=== PATIENT | male | born 1955 | race Caucasian/White ===

== ENCOUNTER 2018-09-02 08:40 | Inpatient (IN) ==
[2018-09-02 09:21] LABS: Baso % (Auto) 0.7 % (0.0-2.0); Eos # (Auto) 0.3 th/mm3 (0.0-0.4); Eos % (Auto) 4.7 % (0.0-4.0); Hematocrit 52.5 % (39.0-51.0); Hemoglobin 17.3 gm/dL (13.0-17.0); Lymph # (Auto) 0.9 th/mm3 (1.0-4.8); Mean Corpuscular Hemoglobin 28.6 pg (27.0-34.0); Mean Corpuscular Volume 86.9 fL (80.0-100.0); Mean Platelet Volume 7.8 fL (7.0-11.0); Mono # (Auto) 0.5 th/mm3 (0.0-0.9); Mono % (Auto) 9.1 % (0.0-8.0); Neut # (Auto) 3.8 th/mm3 (1.8-7.7); Neut % (Auto) 68.5 % (16.0-70.0); Platelet Count 204 th/mm3 (150-450); Red Blood Count 6.05 mil/mm3 (4.50-5.90); Red Cell Distribution Width 16.7 % (11.6-17.2); White Blood Count 5.5 th/mm3 (4.0-11.0)
--- NOTE | 2018-09-02 09:25 | XR ---
EXAM DATE: 09/02/2018 9:21 AM EST AGE/SEX: 63 years / Male INDICATIONS: Dyspnea. Patient complains of leg swelling. Patient is also getting over bronchitis. CLINICAL DATA: This is the patient's initial encounter. Patient reports that signs and symptoms have been present for 1 day and indicates a pain score of 0/10. MEDICAL/SURGICAL HISTORY: None. None. COMPARISON: No prior exams available for comparison. FINDINGS: Patchy mild infiltrate in the right infrahilar area. Otherwise, the rest the lungs are grossly clear. There are no pleural effusions or pulmonary edema. There is some mild prominence of the pulmonary va sculature suggestive of some pulmonary venous congestion. The heart size is upper limits of normal. T he bony structures are grossly intact. CONCLUSION: 1. Mild infiltrate in the right infrahilar area. 2. Mild pulmonary venous congestion. Electronically signed by: Mauricio Tavarez MD Board Certified Radiologist 09/02/2018 9:24 AM EST
[2018-09-02 09:40] LABS: Albumin 3.6 g/dL (3.4-5.0); Anion Gap 6 meq/L (5-15); Aspartate Aminotransferase 33 U/L (15-37); Blood Urea Nitrogen 17 mg/dL (7-18); Calcium 8.7 mg/dL (8.5-10.1); Carbon Dioxide 33.2 meq/L (21.0-32.0); Chloride 98 meq/L (98-107); Glomerular Filtration Rate 83 mL/min (>89); Glucose,Random 114 mg/dL (74-106); Potassium 3.8 meq/L (3.5-5.1); Sodium 137 meq/L (136-145)
[2018-09-02 09:41] LABS: Alanine Aminotransferase 53 U/L (12-78)
[2018-09-02 09:42] LABS: ABG PCO2 56 mmHg (38-42); ABG PO2 48 mmHg (61-120)
[2018-09-02 09:45] LABS: Alkaline Phosphatase 93 U/L (45-117); Total Protein 8.2 g/dL (6.4-8.2)
[2018-09-02 09:51] LABS: Creatine Kinase 68 U/L (39-308)
--- NOTE | 2018-09-02 10:15 | US ---
EXAM DATE: 09/02/2018 10:07 AM EST AGE/SEX: 63 years / Male INDICATIONS: Bilateral lower extremity swelling and redness. CLINICAL DATA: This is the patient's initial encounter. Patient reports that signs and symptoms have been present for 2 days and indicates a pain score of 0/10. MEDICAL/SURGICAL HISTORY: Arthritis. Hypertension. . COMPARISON: No prior exams available for comparison. TECHNIQUE: Venous ultrasound of both lower extremities was performed from the inguinal ligament to t he proximal calf. Real-time, color Doppler and spectral tracing, compression and augmentation techni ques were used. FINDINGS: Right Leg: Normal compression of the deep venous system from the inguinal region to the proximal chayo f. No echogenic clot is seen. Normal response of the venous system to augmentation and respiration. Left Leg: Normal compression of the deep venous system from the inguinal region to the proximal calf . No echogenic clot is seen. Normal response of the venous system to augmentation and respiration. Other: None. CONCLUSION: 1. No evidence of DVT. Electronically signed by: Mauricio Tavarez MD Board Certified Radiologist 09/02/2018 10:14 AM EST
--- NOTE | 2018-09-02 11:54 | CT ---
EXAM DATE: 09/02/2018 11:36 AM EST AGE/SEX: 63 years / Male INDICATIONS: Shortness of breath. Diagnosed with bronchitis two weeks ago. Cough. CLINICAL DATA: This is the patient's initial encounter. Patient reports that signs and symptoms have been present for 2 weeks and indicates a pain score of 2/10. MEDICAL/SURGICAL HISTORY: Hypertension. None. RADIATION DOSE: 27.26 CTDI (mGy) COMPARISON: No prior exams available for comparison. TECHNIQUE: Volumetric scanning was performed using a multi-row detector CT scanner during bolus infu solo of 70 ml Omnipaque 350 (iohexol) nonionic water-soluble contrast as a single exam dose. The sam a was post processed with a variety of visualization algorithms including full volume maximum intensi ty projection and sliding thin slab reformation. Using automated exposure control and adjustment of t he mA and/or kV according to patient size, radiation dose was kept as low as reasonably achievable to obtain optimal diagnostic quality images. DICOM format image data is available electronically for r eview and comparison. FINDINGS: Pulmonary Arteries: No filling defects are seen in the pulmonary arteries out to the subsegmental ve ssels. The left and right pulmonary arteries are normal in diameter. Lung: There is a patchy infiltrate in the right middle lobe. There is a single nonspecific 6 mm pulm onary nodule in the left lower lung. Otherwise, the rest the lung manrique are grossly clear. Effusion: None. Mediastinum: No evidence of mediastinal or hilar adenopathy. Other: The axilla is unremarkable. CONCLUSION: 1. No evidence of pulmonary embolus. 2. Patchy infiltrate in the right middle lobe suggestive of pneumonia. 3. Single nonspecific 6 mm pulmonary nodule in the left lower lung. Recommend follow-up noncontrast CT thorax in 6 months to check stability. Electronically signed by: Mauricio Tavarez MD Board Certified Radiologist 09/02/2018 11:52 AM EST
[2018-09-02] MEDS ORDERED: Azithromycin Inj 250 MG in Sodium Chlor 0.9% Inj 250 ML IV.SIG SCH (12:00)
--- NOTE | 2018-09-02 12:01 | ED ---
HPI General Chief Complaint: Respiratory Symptoms Stated Complaint: respiratory/edema Time Seen by Provider: 09/02/18 08:55 History of Present Illness HPI Narrative: This is a 63-year-old male with a history of hypertension, presents today at the request of his primary care doctor for evaluation for worsening shortness of breath. Patient is being treated for bronchitis/ pneumonia however has gotten worse. He was seen by his primary care doctor today who sent him here for further evaluation. Patient also has lower extremity edema and she was concerned that he may have blood clots to the migrated to his lungs causing a pulmonary embolus. Patient denies any fevers, chills. He reports dyspnea on exertion. He reports severe shortness of breath and coughing. He reports productive white phlegm. There are no other complaints at time of examination. Related Data Home Medications Medication Instructions Recorded Confirmed amlodipine 10 mg PO DAILY 09/02/18 09/02/18 bumetanide 0.5 mg PO DAILY 09/02/18 09/02/18 fexofenadine [Rosemary Allergy] 180 mg PO DAILY 09/02/18 09/02/18 lisinopril 20 mg PO DAILY 09/02/18 09/02/18 Allergies Allergy/AdvReac Type Severity Reaction Status Date / Time No Known Allergies Allergy Verified 09/02/18 08:54 Review of Systems ROS: all other systems reviewed are negative Constitutional Denies chills and Denies fever(s) Eyes Reports system reviewed and no additional complaints, except as docu ENT Reports system reviewed and no additional complaints, except as docu Cardiovascular Denies chest pain, Reports edema, Reports dyspnea and Reports orthopnea Respiratory Reports cough and Denies dyspnea Genitourinary Denies dysuria and Denies flank pain Musculoskeletal Denies back pain and Reports myalgias Neurologic Reports system reviewed and no additional complaints, except as docu [facility] Medical History Medical History Arthritis (Acute) Hypertension (Acute) Social History Social History Substance History: No History of Abuse Smoking Status: Never smoker How Often Do You Have a Drink Containing Alcohol: 4 or more times a week Recent Travel in [facility] within the Last 8 Weeks: No Recent Out of Country Travel within the Last 8 Weeks: No Immunization History Tetanus Immunization: Unsure Exam Narrative Exam Narrative: GENERAL: Well-developed well-nourished male in moderate respiratory distress. SKIN: Focused skin assessment warm/dry. HEAD: Atraumatic. Normocephalic. EYES: Pupils equal and round. No scleral icterus. No injection or drainage. ENT: No nasal bleeding or discharge. Mucous membranes pink and moist. NECK: Trachea midline. Supple. Questionable JVD. CARDIOVASCULAR: Regular rate and rhythm. No murmur appreciated. RESPIRATORY: Coarse rhonchi bilaterally. Decreased breath sounds at the bilateral bases. GASTROINTESTINAL: Abdomen soft, non-tender, obese, nondistended. MUSCULOSKELETAL: No obvious deformities. No clubbing. No cyanosis. 3+ edema bilateral lower extremities with chronic erythema. No weeping fluid noted. NEUROLOGICAL: Awake and alert. No obvious cranial nerve deficits. Motor grossly within normal limits. Normal speech. Course Initial Documented Vital Signs Temperature 98.4 F 09/02/18 08:41 Pulse Rate 113 H 09/02/18 08:41 Respiratory Rate 20 09/02/18 08:41 Blood Pressure 163/72 H 09/02/18 08:41 Pulse Oximetry 85 L 09/02/18 08:41 Last Documented Vital Signs Temperature 98.4 F 09/02/18 08:41 Pulse Rate 81 09/02/18 10:59 Respiratory Rate 09/02/18 10:59 Blood Pressure 158/82 H 09/02/18 10:59 Pulse Oximetry 88 L 09/02/18 10:59 Medical Decision Making MDM Narrative Medical decision making narrative: 63-year-old male presents from the doctor's office for evaluation of shortness of breath and cough. Patient was noted to be hypoxic with a sat of 88% on room air. Patient appears to have a infiltrate on chest x-ray. He did also appears to have interstitial edema. Patient has bilateral lower extremity edema which appears chronic. He was being treated with Lasix for the edema. Ultrasound of bilateral lower extremity showed no evidence of DVT. D-dimer was elevated and a CT angiogram of the chest was ordered which shows no evidence of pulmonary embolism but does show pneumonia. There is a call out to the [facility] admitting team. The patient will need to be admitted, diuresed, started on antibiotics. He is been started on Zithromax and Rocephin. Medical Screen Exam Complete: Yes Emergency Medical Condition: Yes Differential Diagnosis Differential Diagnosis: Pneumonia versus pulmonary embolism versus CHF Lab Data Result diagrams: 09/02/18 09:05 09/02/18 09:05 Lab Results 09/02/18 09/02/18 09/02/18 Range/Units 09:05 09:05 09:05 WBC 5.5 (4.0-11.0) th/mm3 RBC 6.05 H (4.50-5.90) mil/mm3 Hgb 17.3 H (13.0-17.0) gm/dL Hct 52.5 H (39.0-51.0) % MCV 86.9 (80.0-100.0) fL MCH 28.6 (27.0-34.0) pg MCHC 33.0 (32.0-36.0) % RDW 16.7 (11.6-17.2) % Plt Count 204 (150-450) th/mm3 MPV 7.8 (7.0-11.0) fL Neut % (Auto) 68.5 (16.0-70.0) % Lymph % (Auto) 17.0 (9.0-44.0) % [place] % (Auto) 9.1 H (0.0-8.0) % Eos % (Auto) 4.7 H (0.0-4.0) % Baso % (Auto) 0.7 (0.0-2.0) % Neut # (Auto) 3.8 (1.8-7.7) th/mm3 Lymph # (Auto) 0.9 L (1.0-4.8) th/mm3 [place] # (Auto) 0.5 (0.0-0.9) th/mm3 Eos # (Auto) 0.3 (0.0-0.4) th/mm3 Baso # (Auto) 0.0 (0.0-0.2) th/mm3 WBC Differential . Differential Comment Auto diff final D-Dimer Quant (PE/DVT) 1.16 H (0.00-0.50) mg/L FEU Puncture Site Patient Temperature O2 Saturation (90-100) % ABG pH (7.380-7.420) ABG pCO2 (38-42) mmHg ABG pO2 (61-120) mmHg ABG HCO3 (22-26) mmol/L ABG O2 Content (12.0-20.0) Vol % ABG Base Excess (-2-2) mmol/L ABG Methemoglobin (0-2) % Sonu Test Hemoglobin (12.0-16.0) G/DL Carboxyhemoglobin (0-4) % O2 Delivery Device Inspired O2 % Critical Value Sodium 137 (136-145) meq/L Potassium 3.8 (3.5-5.1) meq/L Chloride 98 (98-107) meq/L Carbon Dioxide 33.2 H (21.0-32.0) meq/L Anion Gap 6 (5-15) meq/L BUN 17 (7-18) mg/dL Creatinine 0.92 (0.60-1.30) mg/dL Estimated GFR 83 L (>89) mL/min Random Glucose 114 H (74-106) mg/dL Calcium 8.7 (8.5-10.1) mg/dL Total Bilirubin 0.5 (0.2-1.0) mg/dL AST 33 (15-37) U/L ALT 53 (12-78) U/L Alkaline Phosphatase 93 (45-117) U/L Total Creatine Kinase 68 (39-308) U/L Troponin I Less than 0.02 L (0.02-0.05) ng/mL B-Natriuretic Peptide (0-100) pg/mL Total Protein 8.2 (6.4-8.2) g/dL Albumin 3.6 (3.4-5.0) g/dL 09/02/18 09/02/18 Range/Units 09:05 09:35 WBC (4.0-11.0) th/mm3 RBC (4.50-5.90) mil/mm3 Hgb (13.0-17.0) gm/dL Hct (39.0-51.0) % MCV (80.0-100.0) fL MCH (27.0-34.0) pg MCHC (32.0-36.0) % RDW (11.6-17.2) % Plt Count (150-450) th/mm3 MPV (7.0-11.0) fL Neut % (Auto) (16.0-70.0) % Lymph % (Auto) (9.0-44.0) % [place] % (Auto) (0.0-8.0) % Eos % (Auto) (0.0-4.0) % Baso % (Auto) (0.0-2.0) % Neut # (Auto) (1.8-7.7) th/mm3 Lymph # (Auto) (1.0-4.8) th/mm3 [place] # (Auto) (0.0-0.9) th/mm3 Eos # (Auto) (0.0-0.4) th/mm3 Baso # (Auto) (0.0-0.2) th/mm3 WBC Differential Differential Comment D-Dimer Quant (PE/DVT) (0.00-0.50) mg/L FEU Puncture Site Left radial Patient Temperature 98.6 O2 Saturation 80 L* (90-100) % ABG pH 7.45 H (7.380-7.420) ABG pCO2 56 H* (38-42) mmHg ABG pO2 48 L* (61-120) mmHg ABG HCO3 38 H (22-26) mmol/L ABG O2 Content 18.9 (12.0-20.0) Vol % ABG Base Excess 13.0 H (-2-2) mmol/L ABG Methemoglobin 0.6 (0-2) % Sonu Test Y Hemoglobin 16.8 H (12.0-16.0) G/DL Carboxyhemoglobin 1.7 (0-4) % O2 Delivery Device Ra Inspired O2 21 % Critical Value Yes Sodium (136-145) meq/L Potassium (3.5-5.1) meq/L Chloride (98-107) meq/L Carbon Dioxide (21.0-32.0) meq/L Anion Gap (5-15) meq/L BUN (7-18) mg/dL Creatinine (0.60-1.30) mg/dL Estimated GFR (>89) mL/min Random Glucose (74-106) mg/dL Calcium (8.5-10.1) mg/dL Total Bilirubin (0.2-1.0) mg/dL AST (15-37) U/L ALT (12-78) U/L Alkaline Phosphatase (45-117) U/L Total Creatine Kinase (39-308) U/L Troponin I (0.02-0.05) ng/mL B-Natriuretic Peptide 82 (0-100) pg/mL Total Protein (6.4-8.2) g/dL Albumin (3.4-5.0) g/dL Imaging Data Radiologist's impression: Chest X-Ray 09/02/18 08:55 CONCLUSION: 1. Mild infiltrate in the right infrahilar area. 2. Mild pulmonary venous congestion. Venous Doppler Study 09/02/18 08:55 CONCLUSION: 1. No evidence of DVT. Chest CTA 09/02/18 10:57 CONCLUSION: 1. No evidence of pulmonary embolus. 2. Patchy infiltrate in the right middle lobe suggestive of pneumonia. 3. Single nonspecific 6 mm pulmonary nodule in the left lower lung. Recommend follow-up noncontrast CT thorax in 6 months to check stability. Discharge Plan Discharge Disposition Patient Disposition: ED Admit(ED Internal Use Only) Discharge Details Diagnosis: Pneumonia, Pulmonary edema, Bilateral edema of lower extremity, Hypoxia Physicians Team ED Provider: Rebel Siegel Primary Care Provider: Reina Mack Rxs /Orders / Referrals /Forms Prescriptions: No Action fexofenadine [Rosemary Allergy] 60 mg Tablet 180 mg PO DAILY RF: 0 lisinopril 20 mg Tablet 20 mg PO DAILY RF: 0 amlodipine 10 mg Tablet 10 mg PO DAILY RF: 0 bumetanide 0.5 mg Tablet 0.5 mg PO DAILY RF: 0 Status ED Status: With Doctor
[2018-09-02] MEDS ORDERED: Acetaminophen 325 MG Tablet PO PRN (13:16)
[2018-09-02] MEDS ORDERED: Bisacodyl 10 MG Supp RECTAL PRN (13:16)
[2018-09-02] MEDS: Enoxaparin Inj 40 MG/0.4 ML Syringe SQ SCH (14:20)
--- NOTE | 2018-09-02 14:28 | P.HPIM ---
History of Present Illness Service: Hospitalist Primary Care Physician: Reina Mack MD Chief Complaint: Cough History of Present Illness: Mr. Ring is a pleasant 63-year-old male with a history of hypertension who presents to the emergency department due to cough, failed outpatient therapy with oral antibiotics. For the 2 weeks prior to this admission, patient has been experiencing significant upper respiratory symptoms including cough. Her family members, sometimes he has to lean over a chair to breathe. He was evaluated by his primary care physician who prescribed azithromycin initially. With no improvement of symptoms, patient was reevaluated and cephalexin was also given due to suspected lower extremity cellulitis. Patient did have fever 1 day but not persistent fever. Per daughter (an ICU nurse) patient has been having some respiratory problems for over a year. He has had significant bilateral leg swelling and recently redness in both lower extremities with some skin breakage and seepage of fluid. Patient does not have any history of smoking, heart disease. Never been diagnosed with COPD. Due to worsening symptoms as well as failed outpatient therapy, primary care physician advised patient to come to the emergency department today 09/02/2018. Upon arrival, chest x-ray CT pulmonary angiogram as well as bilateral lower extremity Doppler studies were completed. No PE or DVTs were identified. CT scan showed right-sided infiltrates. BNP was 82. No leukocytosis but hemoglobin was 17.3 and hematocrit 52.5. Chemistry panel was largely unremarkable. Patient was given IV azithromycin as well as ceftriaxone 1 g in the emergency department. ABG 7.45/56/48 on room air. Past medical history: Hypertension, seasonal allergies, neuropathy, arthritis Past surgical history: No significant surgical history. Social history: Lifelong non-smoker, drinks 3-6 beers a day. No illicit drugs Family history: No father from heart disease in mother from breast cancer. Inpatient Certification Inpatient Certification: I certify that the inpatient services were ordered in accordance with Medicare regulations governing the order. This includes certification that hospital inpatient services are reasonable and necessary and in the case of services not specified as inpatient-only under 42 CFR 419.22(n), that they are appropriately provided as inpatient services in accordance to with the 2-midnight benchmark under 43 CFR 412.3(e) Estimated Total Length of Stay (Days): 3 Plans for Post Hospital Care: Not yet determined Review of Systems Review of Systems: all other systems reviewed are negative PMFSH Medical History Medical History Arthritis (Acute) Hypertension (Acute) Social History Social History Substance History: No History of Abuse Smoking Status: Never smoker How Often Do You Have a Drink Containing Alcohol: 4 or more times a week Recent Travel in [facility] within the Last 8 Weeks: No Recent Out of Country Travel within the Last 8 Weeks: No Immunization History Tetanus Immunization: Unsure Medications and Allergies Allergies Allergy/AdvReac Type Severity Reaction Status Date / Time No Known Allergies Allergy Verified 09/02/18 08:54 Home Medications Medication Instructions Recorded Confirmed Type amlodipine 5 mg PO DAILY 09/02/18 09/02/18 History benazepril 20 mg PO DAILY 09/02/18 09/02/18 History bumetanide 1 mg PO DAILY 09/02/18 09/02/18 History fexofenadine [Rosemary Allergy] 180 mg PO DAILY 09/02/18 09/02/18 History Active Medications: Active Medications Acetaminophen (Tylenol) 650 mg PO Q4H PRN PRN Reason: headache, fever, pain 1-4 Al Hydroxide/Mg Hydroxide (Milk Of Magnesia Liq) 30 ml PO Q12H PRN PRN Reason: Mild Constipation Albuterol (Duoneb Neb (Prn)) 1 ampul NEB Q4HR NEB PRN PRN Reason: DYSPNEA Bisacodyl (Dulcolax Supp) 10 mg RECTAL DAILY PRN PRN Reason: SEVERE CONSITIPATION Enoxaparin Sodium (Lovenox Inj) 40 mg SQ Q24H [facility] Last Admin: 09/02/18 14:20 Dose: 40 mg Azithromycin 250 mg/ Sodium (Chloride) 250 mls @ 250 mls/hr IV.SIG Q24H [facility] Last Infusion: 09/02/18 14:20 Dose: Infused Ceftriaxone Sodium 1,000 mg/ (Sodium Chloride) 100 mls @ 200 mls/hr IV.SIG ONCE ONE Stop: 09/02/18 15:29 Last Admin: 09/02/18 14:20 Dose: 200 mls/hr Ceftriaxone Sodium 2,000 mg/ (Sodium Chloride) 100 mls @ 200 mls/hr IV.SIG Q24H [facility] Lactulose (Lactulose Liq) 30 ml PO DAILY PRN PRN Reason: SEVERE CONSITIPATION Ondansetron HCl (Zofran Inj) 4 mg IV.PUSH Q6H PRN PRN Reason: NAUSEA OR VOMITING Prednisone (Deltasone) 50 mg PO DAILY [facility] Stop: 09/07/18 14:29 Sennosides (Senokot) 17.2 mg PO Q12H PRN PRN Reason: Moderate Constipation Sodium Chloride (Ns Flush) 2 ml IV.FLUSH BID [facility] Sodium Chloride (Ns Flush) 2 ml IV.FLUSH PRN PRN PRN Reason: FLUSH AFTER USING IV ACCESS Physical Exam Vital signs: Vital Signs 09/02/18 08:41 09/02/18 08:51 09/02/18 08:55 Temperature 98.4 F Pulse Rate 113 H 113 H 110 H Respiratory Rate 20 22 Blood Pressure 163/72 H 140/82 Pulse Oximetry 85 L 85 L 87 L 09/02/18 09:35 09/02/18 09:53 09/02/18 10:59 Temperature Pulse Rate 81 Respiratory Rate 20 Blood Pressure 158/82 H Pulse Oximetry 85 L 88 L 88 L 09/02/18 13:32 09/02/18 13:34 Temperature Pulse Rate 90 Respiratory Rate 20 Blood Pressure 134/74 Pulse Oximetry 91 L 91 L Intake & Output 09/01/18 09/02/18 09/02/18 18:59 06:59 18:59 Intake Total 350 / 350 Output Total 1500 / 1500 Balance -1150 / -1150 Weight 145.15 kg Intake: IV 350 / 350 Azithromycin Inj 250 MG In NS 250 / 250 Inj 250 ML @ 250 mls/hr IV.SIG Q24H [facility] Rx#:[id number] Rocephin Inj 1,000 MG In NS Inj 100 / 100 100 ML @ 200 mls/hr IV.SIG ONCE ONE Rx#:[id number] Output: Urine 1500 / 1500 Other: # Voids 3 Narrative: GENERAL: This is a well-nourished, well-developed patient, in no apparent distress. SKIN: No rashes, ecchymoses or lesions. Warm and dry. HEAD: Atraumatic. Normocephalic. No temporal or scalp tenderness. EYES: Pupils equal round and reactive. No injection or drainage. ENT: Nose without bleeding, purulent drainage or septal hematoma. Airway patent. NECK: Trachea midline. No lymphadenopathy. Supple, nontender, no meningeal signs. CARDIOVASCULAR: Regular rate and rhythm without murmurs, gallops, or rubs. No JVD. RESPIRATORY: Poor air entry, no appreciable wheezing noted. GASTROINTESTINAL: Abdomen soft, non-tender, nondistended. No guarding. MUSCULOSKELETAL: Extremities without clubbing, cyanosis significant. 2+ edema noted in bilateral lower extremities. Erythematous changes noted in the lower part of bilateral lower extremities. NEUROLOGICAL: Awake and alert. Cranial nerves II through XII intact. No focal neurological deficits. Normal speech. Results Labs CBC & Chem 7: 09/02/18 09:05 09/02/18 09:05 Imaging Impressions Chest X-Ray 09/02/18 08:55 CONCLUSION: 1. Mild infiltrate in the right infrahilar area. 2. Mild pulmonary venous congestion. Venous Doppler Study 09/02/18 08:55 CONCLUSION: 1. No evidence of DVT. Chest CTA 09/02/18 10:57 CONCLUSION: 1. No evidence of pulmonary embolus. 2. Patchy infiltrate in the right middle lobe suggestive of pneumonia. 3. Single nonspecific 6 mm pulmonary nodule in the left lower lung. Recommend follow-up noncontrast CT thorax in 6 months to check stability. Caprini VTE Risk Assessment Caprini VTE Risk Assessment: Moderate/High Risk (score >= 2) Caprini Risk Assessment Model: Point Value = 1 Point Value = 2 Point Value = 3 Point Value = 5 Age 41-60 Minor surgery BMI > 25 kg/m2 Swollen legs Varicose veins or History of unexplained or recurrent spontaneous Oral contraceptives or hormone replacement Sepsis (< 1 month) Serious lung disease, including pneumonia (< 1 month) Abnormal pulmonary function Acute myocardial infarction Congestive heart failure (< 1 month) History of inflammatory bowel disease Medical patient at bed rest Age 61-74 Arthroscopic surgery Major open surgery (> 45 min) Laparoscopic surgery (> 45 min) Malignancy Confined to bed (> 72 hours) Immobilizing plaster cast Central venous access Age >= 75 History of VTE Family history of VTE Factor V Leiden Prothrombin [id number] Lupus anticoagulant Anticardiolipin antibodies Elevated serum homocysteine Heparin-induced thrombocytopenia Other congenital or acquired thrombophilia Stroke (< 1 month) Elective arthroplasty Hip, pelvis, or leg fracture Acute spinal cord injury (< 1 month) Prophylaxis Regimen: Total Risk Factor Score Risk Level Prophylaxis Regimen 0-1 Low Early ambulation 2 Moderate Order ONE of the following: *Sequential Compression Device (SCD) *Heparin 5000 units SQ BID 3-4 Higher Order ONE of the following medications: *Heparin 5000 units SQ TID *Enoxaparin/Lovenox 40 mg SQ daily (WT < 150 kg, CrCl > 30 mL/min) *Enoxaparin/Lovenox 30 mg SQ daily (WT < 150 kg, CrCl > 10-29 mL/min) *Enoxaparin/Lovenox 30 mg SQ BID (WT < 150 kg, CrCl > 30 mL/min) AND/OR *Sequential Compression Device (SCD) 5 or more Highest Order ONE of the following medications: *Heparin 5000 units SQ TID (Preferred with Epidurals) *Enoxaparin/Lovenox 40 mg SQ daily (WT < 150 kg, CrCl > 30 mL/min) *Enoxaparin/Lovenox 30 mg SQ daily (WT < 150 kg, CrCl > 10-29 mL/min) *Enoxaparin/Lovenox 30 mg SQ BID (WT < 150 kg, CrCl > 30 mL/min) AND *Sequential Compression Device (SCD) Assessment and Plan Plan Mr. Ring is a pleasant 63-year-old male with a history of hypertension who presents to the emergency department due to worsening cough, failed outpatient therapy with oral antibiotics. On presentation, patient was found to have hypoxic and hypercarbic respiratory failure. Imaging studies showed no DVT or PE but shows right-sided pneumonia. Acute hypoxic respiratory failure Acute hypercarbic respiratory failure ABG showed pH 7.45, PCO2 56 and PO2 48 on room air. O2 saturation 80% on ABG. Maintain supplemental oxygen to obtain O2 saturation around 90% We will start patient on ceftriaxone 2 g every 24 hours IV, Levaquin 750 mg p.o. daily Prednisone 50 mg daily for 5 days Patient would benefit from outpatient formal pulmonary function test. REFUGIO inhibitor induced cough is also possible contributory factor. Will discontinue REFUGIO inhibitor for now. Erythrocytosis Could be due to hemoconcentration. Will repeat CBC in the morning. We will also obtain erythropoietin level. If Hgb remains high and erythropoietin level is also elevated, consider imaging workup for malignancy such as renal cell carcinoma. If erythropoietin level is low and hemoglobin is high, will consider workup for polycythemia vera (JAK2 mutation). Hypertension Continue home medication amlodipine 5 mg p.o. daily. We can up titrate amlodipine. Patient was taking benazepril 20 mg p.o. daily. REFUGIO inhibitor induced cough could be a contributing factor. If needed, we could wait 3-4 weeks and then start ARB such as losartan. Bilateral lower extremity stasis dermatitis Likely lymphedema BNP is 82. Lower ext swelling is unlikely related to heart failure. We will obtain echocardiogram. Keep legs elevated. If erythropoietin level is elevated, malignancy could explain lower extremity lymphedema. Full code. Lovenox for DVT prophylaxis. Discussed with patient, patient's daughter at length.
--- NOTE | 2018-09-02 14:38 | ECG ---
Date Performed: 09/02/2018 Time Performed: 09:07:40 PTAGE: 63 years EKG: SINUS TACHYCARDIA POSSIBLE LEFT ATRIAL ENLARGEMENT INDETERMINATE AXIS RIGHT BUNDLE BRANCH B LOCK LEFT POSTERIOR FASCICULAR BLOCK MODERATE T-WAVE ABNORMALITY, CONSIDER ANTEROLATERAL ISCHEMIA MOD ERATE T-WAVE ABNORMALITY, CONSIDER INFERIOR ISCHEMIA ABNORMAL ECG NO PREVIOUS TRACING DOCTOR: Selene Vásquez Interpretating Date/Time 09/02/2018 14:33:00
[2018-09-02] MEDS: levoFLOXacin 750 MG Tablet PO SCH (15:04)
--- NOTE | 2018-09-02 16:03 | ECHRPT ---
Indication: heart failure CONCLUSIONS Normal left ventricular size. Mild concentric left ventricular hypertrophy. The left ventricular systolic function is normal with an estimated ejection fraction in the range of 55-60%. The estimated pulmonary arterial pressure is 46 mmHg. There is mild tricuspid valve regurgitation. BP: / HR: Rhythm: MEASUREMENTS (Male / Female) Normal Values Technical Quality:Very technically difficult study 2D ECHO LV Diastolic Diameter PLAX 4.3 cm 4.2 - 5.9 / 3.9 - 5.3 cm LV Systolic Diameter PLAX 3.3 cm IVS Diastolic Thickness 1.4 cm 0.6 - 1.0 / 0.6 - 0.9 cm LVPW Diastolic Thickness 1.5 cm 0.6 - 1.0 / 0.6 - 0.9 cm LV Relative Wall Thickness 0.7 RV Internal Dim ED PLAX 3.4 cm LVOT Diameter 2.5 cm Aortic Root Diameter 3.1 cm LA Systolic Diameter LX 2.8 cm 3.0 - 4.0 / 2.7 - 3.8 cm M-MODE Aortic Root Diameter MM 3.7 cm LA Systolic Diameter MM 3.8 cm LA Ao Ratio MM 1.0 AV Cusp Separation MM 2.2 cm DOPPLER AV Peak Velocity 141.0 cm/s AV Peak Gradient 8.0 mmHg LVOT Peak Velocity 122.0 cm/s LVOT Peak Gradient 6.0 mmHg AV Area Cont Eq pk 4.2 cm Mitral E Point Velocity 96.3 cm/s Mitral A Point Velocity 70.6 cm/s Mitral E to A Ratio 1.4 LV E' Lateral Velocity 16.4 cm/s Mitral E to LV E' Lateral Ratio 5.9 LV E' Septal Velocity 8.2 cm/s Mitral E to LV E' Septal Ratio 11.8 TR Peak Velocity 299.0 cm/s TR Peak Gradient 35.8 mmHg Right Atrial Pressure 10.0 mmHg Pulmonary Artery Systolic Pressu 45.8 mmHg Right Ventricular Systolic Press 45.8 mmHg PV Peak Velocity 93.7 cm/s PV Peak Gradient 3.5 mmHg FINDINGS LEFT VENTRICLE Normal left ventricular size. Mild concentric left ventricular hypertrophy. The left ventricular systolic function is normal with an estimated ejection fraction in the range of 55-60%. RIGHT VENTRICLE Normal right ventricular size and systolic function. LEFT ATRIUM The left atrial size is normal. RIGHT ATRIUM The right atrial size is normal. ATRIAL SEPTUM Normal atrial septal thickness without atrial level shunting by limited color doppler interrogation. AORTA The aortic root and proximal ascending aorta are normal in size on limited imaging. MITRAL VALVE Structurally normal mitral valve. No mitral valve stenosis or regurgitation. AORTIC VALVE Trileaflet aortic valve. No aortic valve stenosis or regurgitation. TRICUSPID VALVE The estimated pulmonary arterial pressure is 46 mmHg. There is mild tricuspid valve regurgitation. PULMONARY VALVE No pulmonary valve regurgitation or stenosis. VESSELS The inferior vena cava is normal in size. PERICARDIUM No pericardial effusion. Primo Arce MD, FACC, [facility] [place] (Electronically Signed) Final Date:02 September 2018 16:03
[2018-09-03] MEDS: amLODIPine 5 MG Tablet PO SCH (08:30)
[2018-09-03] MEDS: Loratadine 10 MG Tablet PO SCH (08:30)
[2018-09-03] MEDS: levoFLOXacin 750 MG Tablet PO SCH (08:30)
[2018-09-03] MEDS ORDERED: Lisinopril 20 MG Tablet PO SCH (09:00)
[2018-09-03] MEDS ORDERED: Azithromycin 250 MG Tablet PO SCH (09:00)
--- NOTE | 2018-09-03 10:18 | P.PNIM ---
Subjective Interval history: Follow-up for pneumonia. Patient is currently doing well. On 2 L of oxygen. Denies any chest pain, shortness of breath, fever or chills. Physical Exam Vital signs: Vital Signs 09/02/18 10:59 09/02/18 13:32 09/02/18 13:34 Temperature Pulse Rate 81 90 Respiratory Rate 20 20 Blood Pressure 158/82 H 134/74 Pulse Oximetry 88 L 91 L 91 L 09/02/18 14:56 09/02/18 16:05 09/02/18 20:00 Temperature 98.1 F Pulse Rate 90 84 Respiratory Rate 20 18 Blood Pressure 159/58 H 155/98 H Pulse Oximetry 91 L 88 L 98 09/03/18 00:00 09/03/18 04:00 09/03/18 08:15 Temperature 98.3 F 98.3 F 98.3 F Pulse Rate 80 86 89 Respiratory Rate 20 16 16 Blood Pressure 123/65 119/69 147/80 H Pulse Oximetry 94 L 95 92 L Intake & Output 09/02/18 09/03/18 09/03/18 18:59 06:59 18:59 Intake Total 450 / 450 Output Total 2700 / 2700 Balance -2250 / -2250 Weight 145.15 kg 149.6 kg Intake: IV 450 / 450 Azithromycin Inj 250 MG In NS 250 / 250 Inj 250 ML @ 250 mls/hr IV.SIG Q24H [facility] Rx#:[id number] Rocephin Inj 1,000 MG In NS Inj 200 / 200 100 ML @ 200 mls/hr IV.SIG ONCE ONE Rx#:[id number] Output: Urine 2700 / 2700 Other: # Voids 3 3 Weight On Admission 149.6 kg Narrative: GENERAL: Well-nourished, well-developed patient. SKIN: Warm and dry. HEAD: Normocephalic. EYES: No scleral icterus. No injection or drainage. NECK: Supple, trachea midline. No JVD or lymphadenopathy. CARDIOVASCULAR: Regular rate and rhythm without murmurs, gallops, or rubs. RESPIRATORY: Moderate air entry, no appreciable wheezing noted. No accessory muscle use. GASTROINTESTINAL: Abdomen soft, non-tender, nondistended. MUSCULOSKELETAL: No cyanosis. Chronic stasis dermatitis. 2+ edema. BACK: Nontender without obvious deformity. No CVA tenderness. Results Labs CBC & Chem 7: 09/02/18 09:05 09/02/18 09:05 Imaging Imaging: Impressions Venous Doppler Study 09/02/18 08:55 CONCLUSION: 1. No evidence of DVT. Chest CTA 09/02/18 10:57 CONCLUSION: 1. No evidence of pulmonary embolus. 2. Patchy infiltrate in the right middle lobe suggestive of pneumonia. 3. Single nonspecific 6 mm pulmonary nodule in the left lower lung. Recommend follow-up noncontrast CT thorax in 6 months to check stability. Assessment and Plan Plan Mr. Ring is a pleasant 63-year-old male with a history of hypertension who presents to the emergency department due to worsening cough, failed outpatient therapy with oral antibiotics. On presentation, patient was found to have hypoxic and hypercarbic respiratory failure. Imaging studies showed no DVT or PE but shows right-sided pneumonia. Acute hypoxic respiratory failure Acute hypercarbic respiratory failure ABG showed pH 7.45, PCO2 56 and PO2 48 on room air. O2 saturation 80% on ABG. Maintain supplemental oxygen to obtain O2 saturation around 90% ceftriaxone 2 g every 24 hours IV, Levaquin 750 mg p.o. daily Patient cannot tolerate prednisone. Patient would benefit from outpatient formal pulmonary function test. REFUGIO inhibitor induced cough is also possible contributory factor. Will discontinue REFUGIO inhibitor for now. Erythrocytosis Could be due to hemoconcentration. CBC pending this morning. We will also obtain erythropoietin level. If Hgb remains high and erythropoietin level is also elevated, consider imaging workup for malignancy such as renal cell carcinoma. If erythropoietin level is low and hemoglobin is high, will consider workup for polycythemia vera (JAK2 mutation). Hypertension Continue home medication amlodipine 5 mg p.o. daily. We can up titrate amlodipine. Patient was taking benazepril 20 mg p.o. daily. REFUGIO inhibitor induced cough could be a contributing factor. If needed, we could wait 3-4 weeks and then start ARB such as losartan. Bilateral lower extremity stasis dermatitis Likely lymphedema BNP is 82. Lower ext swelling is unlikely related to heart failure. Echocardiogram shows normal ejection fraction 55-60%. Keep legs elevated. If erythropoietin level is elevated, malignancy could explain lower extremity lymphedema. Full code. Lovenox for DVT prophylaxis. Discharge plan: Possible discharge within next 24-48 hours. Progress Note: Quality VTE Deep Vein Thrombosis/Pulmonary Embolism Present on Admission: Yes
[2018-09-03 10:44] LABS: Baso % (Auto) 0.7 % (0.0-2.0); Eos # (Auto) 0.2 th/mm3 (0.0-0.4); Eos % (Auto) 3.8 % (0.0-4.0); Hematocrit 48.7 % (39.0-51.0); Hemoglobin 16.5 gm/dL (13.0-17.0); Lymph # (Auto) 0.8 th/mm3 (1.0-4.8); Lymph % (Auto) 15.1 % (9.0-44.0); Mean Corpuscular HGB Conc 33.9 % (32.0-36.0); Mean Corpuscular Hemoglobin 29.3 pg (27.0-34.0); Mean Corpuscular Volume 86.2 fL (80.0-100.0); Mean Platelet Volume 8.1 fL (7.0-11.0); Mono # (Auto) 0.5 th/mm3 (0.0-0.9); Mono % (Auto) 9.8 % (0.0-8.0); Neut # (Auto) 3.9 th/mm3 (1.8-7.7); Neut % (Auto) 70.6 % (16.0-70.0); Platelet Count 213 th/mm3 (150-450); Red Blood Count 5.65 mil/mm3 (4.50-5.90); Red Cell Distribution Width 16.3 % (11.6-17.2); White Blood Count 5.5 th/mm3 (4.0-11.0)
[2018-09-03 11:11] LABS: Anion Gap 3 meq/L (5-15); Blood Urea Nitrogen 11 mg/dL (7-18); Calcium 8.5 mg/dL (8.5-10.1); Carbon Dioxide 38.7 meq/L (21.0-32.0); Chloride 97 meq/L (98-107); Glomerular Filtration Rate Greater Than 89 mL/min (>89); Glucose,Random 82 mg/dL (74-106); Potassium 3.8 meq/L (3.5-5.1); Sodium 139 meq/L (136-145)
[2018-09-03] MEDS: Enoxaparin Inj 40 MG/0.4 ML Syringe SQ SCH (13:14)
[2018-09-03 21:00] VITALS: RESP 18
[2018-09-04] MEDS: Loratadine 10 MG Tablet PO SCH (08:03)
[2018-09-04] MEDS: amLODIPine 5 MG Tablet PO SCH (08:03)
[2018-09-04] MEDS: levoFLOXacin 750 MG Tablet PO SCH (08:03)
[2018-09-04 09:08] VITALS: TEMP 98.1
[2018-09-04 10:11] VITALS: O2SAT 93
--- NOTE | 2018-09-04 10:53 | P.PNIM ---
Subjective Interval history: Patient reports that he is feeling much better. Really wants to go home. No shortness of breath. Less cough. No chest pain. No fevers or chills. Physical Exam Vital signs: Vital Signs 09/03/18 12:00 09/03/18 12:10 09/03/18 16:00 Temperature 97.9 F 98.4 F Pulse Rate 83 88 88 Respiratory Rate 16 16 Blood Pressure 141/78 H 156/78 H Pulse Oximetry 95 94 L Pulse Oximetry [Resting on Room Air] Pulse Oximetry [Resting with Oxygen] 09/03/18 19:38 09/03/18 19:40 09/03/18 19:45 Temperature 97.8 F Pulse Rate 91 H Respiratory Rate 18 Blood Pressure 133/68 Pulse Oximetry 88 L 94 L Pulse Oximetry [Resting on Room Air] Pulse Oximetry [Resting with Oxygen] 09/03/18 20:00 09/03/18 23:15 09/04/18 00:00 Temperature 98.2 F Pulse Rate 89 95 H 90 Respiratory Rate 18 Blood Pressure 157/98 H Pulse Oximetry 94 L Pulse Oximetry [Resting on Room Air] Pulse Oximetry [Resting with Oxygen] 09/04/18 04:00 09/04/18 04:05 09/04/18 07:58 Temperature 97.7 F 98.1 F Pulse Rate 90 88 90 Respiratory Rate 18 18 Blood Pressure 152/83 H 155/80 H Pulse Oximetry 93 L 90 L Pulse Oximetry [Resting on Room Air] Pulse Oximetry [Resting with Oxygen] 09/04/18 08:00 09/04/18 10:10 Temperature Pulse Rate 86 Respiratory Rate Blood Pressure Pulse Oximetry 93 L Pulse Oximetry [Resting on Room Air] 85 L Pulse Oximetry [Resting with Oxygen] 93 L Intake & Output 09/03/18 09/04/18 09/04/18 18:59 06:59 18:59 Intake Total 2480 / 2480 480 / 480 Output Total 2400 / 2400 Balance 80 / 80 480 / 480 Weight 140.7 kg Intake: IV 100 / 100 Rocephin Inj 2,000 MG In NS Inj 100 / 100 100 ML @ 200 mls/hr IV.SIG Q24H [facility] Rx#:[id number] Oral 2380 / 2380 480 / 480 Output: Urine 2400 / 2400 Other: # Voids 3 # Bowel Movements 2 Narrative: GENERAL: Well-nourished, well-developed patient. RESPIRATORY: Relatively clear, no appreciable wheezing noted. No accessory muscle use. GASTROINTESTINAL: Abdomen soft, non-tender, nondistended. Normoactive bowel sounds MUSCULOSKELETAL: No cyanosis. Chronic stasis dermatitis. 2+ edema. Neurological examalert and oriented x3 moves all 4 extremities without difficulty. Results Labs CBC & Chem 7: 09/03/18 07:34 09/03/18 07:34 Assessment and Plan (1) Acute respiratory failure with hypoxia and hypercapnia: Code(s): J96.01 - Acute respiratory failure with hypoxia; J96.02 - Acute respiratory failure with hypercapnia Status: Acute (2) Incidental lung nodule, > 3mm and < 8mm: Code(s): R91.1 - Solitary pulmonary nodule Status: Acute (3) Pneumonia: Code(s): J18.9 - Pneumonia, unspecified organism Status: Acute Plan Mr. Ring is a pleasant 63-year-old male with a history of hypertension who presents to the emergency department due to worsening cough, failed outpatient therapy with oral antibiotics. On presentation, patient was found to have hypoxic and hypercarbic respiratory failure. Imaging studies showed no DVT or PE but shows right-sided pneumonia. Acute hypoxic respiratory failure Acute hypercarbic respiratory failure ABG showed pH 7.45, PCO2 56 and PO2 48 on room air. O2 saturation 80% on ABG. Maintain supplemental oxygen to obtain O2 saturation around 90% Walk test today and likely will need home oxygen ceftriaxone 2 g every 24 hours IV, Levaquin 750 mg p.o. daily Patient cannot tolerate prednisone. Patient would benefit from outpatient formal pulmonary function test as outpatient when pneumonia resolves. REFUGIO inhibitor induced cough is also possible contributory factor. Will discontinue REFUGIO inhibitor for now. Erythrocytosis Could be due to hemoconcentration. CBC on 09/03 showed hemoglobin 16.5 erythropoietin level currently pending. If Hgb remains high and erythropoietin level is also elevated, consider imaging workup for malignancy such as renal cell carcinoma. If erythropoietin level is low and hemoglobin is high, will consider workup for polycythemia vera (JAK2 mutation). We will have him follow-up with his primary care physician for further evaluation and workup Hypertension Increase amlodipine to 10 mg p.o. daily as we have discontinue his home REFUGIO inhibitor Patient was taking benazepril 20 mg p.o. daily. REFUGIO inhibitor induced cough could be a contributing factor. If needed, we could wait 3-4 weeks and then start ARB such as losartan. Bilateral lower extremity stasis dermatitis Likely lymphedema BNP is 82. Lower ext swelling is unlikely related to heart failure. Echocardiogram shows normal ejection fraction 55-60%. Keep legs elevated. If erythropoietin level is elevated, malignancy could explain lower extremity lymphedema. Nonspecific 6 mm pulmonary nodule left lower lungfollow-up with noncontrast CT thorax in 6 months to check for stability, discussed with patient Full code. Lovenox for DVT prophylaxis. Discharge patient to home after home oxygen arranged Condition on discharge: Improved Regular Diet as tolerated Ad Shaunna activity Rx written: Levaquin 750 mg p.o. daily Norvasc 10 mg p.o. daily Follow-up with primary care physician within 1 week Progress Note: Quality VTE Deep Vein Thrombosis/Pulmonary Embolism Present on Admission: Yes _ (1) Pneumonia Qualifiers: Aspiration pneumonia type: Laterality: unspecified laterality Lung location : lower lobe of lung Pneumonia type: due to unspecified organism Qualified Code(s): J18.1 - Lobar pneumonia, unspecified organism
[2018-09-04] MEDS ORDERED: Azithromycin 250 MG Tablet PO SCH (11:00)
[2018-09-04 12:46] VITALS: PULSE 84
[2018-09-04] MEDS: Enoxaparin Inj 40 MG/0.4 ML Syringe SQ SCH (13:27)
[2018-09-04 13:36] VITALS: BP 158/86
== END 2018-09-04 15:00 | disposition home or self-care (01) | DRG 193 ==
LOC: NEPC 08:40 → NEDA 13:06 → N04 16:10
PROVIDERS: ADMIT Family Medicine; ATTEND Family Medicine
DX: I10 Essential (primary) hypertension; M19.90 Unspecified osteoarthritis, unspecified site; J96.02 Acute respiratory failure with hypercapnia; D75.1 Secondary polycythemia; R09.02 Hypoxemia; Z82.49 Family history of ischemic heart disease and other diseases of the circulatory system; J81.1 Chronic pulmonary edema; Z80.3 Family history of malignant neoplasm of breast; I87.2 Venous insufficiency (chronic) (peripheral); J18.9 Pneumonia, unspecified organism; R91.1 Solitary pulmonary nodule; I89.0 Lymphedema, not elsewhere classified; J96.01 Acute respiratory failure with hypoxia
CPT/HCPCS: 36600; 71010; 71045; 71275; 80048; 80053; 82550; 82668; 82805; 83520; 83880; 84484; 85025; 85379; 90765; 90775; 93005; 93306; 93970; 94150; 94618; 94620; 96365; 96375; 99285; J0456; J0696; J1650; J1940; J7050; Q9967